=== PATIENT | male | born 1950 | race Hispanic/Latino ===

== ENCOUNTER → 2022-02-15 | Outpatient (CLI) | payer OTHER | END | disposition home or self-care (01) | LOC: SHCH 10:01 | PROVIDERS: ATTEND Student in an Organized Health Care Education/Training Program | DX: I08.8 Other rheumatic multiple valve diseases (principal); E78.5 Hyperlipidemia, unspecified | CPT/HCPCS: 93306 ==

== ENCOUNTER → 2022-04-29 | Outpatient (CLI) | payer OTHER ==
[2022-04-29 10:42] LABS: ALBUMIN 3.8 g/dL (3.5-5.0); POTASSIUM 5.2 mmol/L (3.5-5.1); TOTAL PROTEIN, SERUM 7.1 g/dL (6.0-8.3)
== END | disposition home or self-care (01) ==
LOC: LAB 09:02
PROVIDERS: ATTEND Student in an Organized Health Care Education/Training Program
DX: E78.5 Hyperlipidemia, unspecified (principal)
CPT/HCPCS: 36415; 80053

== ENCOUNTER → 2022-05-03 | Outpatient (CLI) | payer OTHER ==
[~2022-05-03] MED LIST: IOHEXOL 350 MG/ML 100ML INFUS..BTL IV ONE
== END | disposition home or self-care (01) ==
LOC: RAH 08:14
PROVIDERS: ATTEND Student in an Organized Health Care Education/Training Program
DX: I65.23 Occlusion and stenosis of bilateral carotid arteries (principal); I25.10 Atherosclerotic heart disease of native coronary artery without angina pectoris
CPT/HCPCS: 70498; Q9967

== ENCOUNTER → 2022-06-09 | Outpatient (CLI) | payer SELFPAY ==
[2022-06-09 13:17] LABS: ALBUMIN 4.1 g/dL (3.5-5.0); POTASSIUM 4.8 mmol/L (3.5-5.1); TOTAL PROTEIN, SERUM 7.2 g/dL (6.0-8.3)
== END | disposition home or self-care (01) ==
LOC: LAB 09:46
PROVIDERS: ATTEND Student in an Organized Health Care Education/Training Program
DX: I10 Essential (primary) hypertension (principal)
CPT/HCPCS: 36415; 80053

== ENCOUNTER 2023-02-21 11:18 | Emergency (ER) | payer OTHER ==
[~2023-02-21] VITALS: Ht 185.4 cm; Wt 86.2 kg
[2023-02-21 11:37] VITALS: BP 131/81; PULSE 56; RESP 16
[2023-02-21] MEDS ORDERED: 0.9%NACL 1000ML 1,000 ML IV ONE (12:30)
[2023-02-21 12:43] LABS: BASOPHILS # (AUTO) 0.03 K/uL (0.00-0.20); BASOPHILS % (AUTO) 0.4 % (0.0-5.0); EOSINOPHILS # (AUTO) 0.13 K/uL (0.00-0.70); EOSINOPHILS % (AUTO) 1.9 % (0.0-8.0); HEMATOCRIT 42.4 % (42-54); IMMATURE GRANULOCYTE ABSOLUTE 0.05 K/uL (0-1); LYMPHOCYTES # (AUTO) 1.6 K/uL (1.0-4.8); LYMPHOCYTES % (AUTO) 23.4 % (21.0-51.0); MEAN CORPUSCULAR HEMOGLOBIN 31.1 pg (27.0-33.0); MEAN CORPUSCULAR HGB CONC 34.7 g/dL (32.0-36.0); MEAN CORPUSCULAR VOLUME 89.8 fL (79-99); MONOCYTES # (AUTO) 0.4 K/uL (0.1-1.0); MONOCYTES % (AUTO) 5.3 % (3.0-13.0); NEUTROPHILS # (AUTO) 4.7 K/uL (1.8-7.7); NEUTROPHILS % (AUTO) 68.3 % (40.0-77.0); PLATELET COUNT (AUTO) 164 K/uL (130-400); RED BLOOD CELL COUNT(AUTO) 4.72 MIL/uL (4.50-6.20); WHITE BLOOD COUNT (AUTO) 6.8 K/uL (4.8-10.8)
[2023-02-21 12:51] LABS: BILIRUBIN,URINE NEGATIVE (NEGATIVE); COLOR,URINE YELLOW (YELLOW); GLUCOSE, URINE (UA) NEGATIVE (NEGATIVE); KETONES,URINE NEGATIVE (NEGATIVE); LEUKOCYTE ESTERASE ,URINE NEGATIVE Leu/uL (NEGATIVE); NITRATE,URINE NEGATIVE (NEGATIVE); OCCULT BLOOD,URINE NEGATIVE (NEGATIVE); PROTEIN,URINE NEGATIVE (NEGATIVE); UROBILINOGEN,URINE 0.2 mg/dL (0.2-1.0)
[2023-02-21 12:56] LABS: ADD UA MICROSCOPIC YES; APPEARANCE,URINE CLOUDY (CLEAR)
[2023-02-21 12:57] LABS: SARS-CoV-2, RNA, NAAT NEGATIVE SARS CoV-2 (NEGATIVE)
[2023-02-21 13:10] LABS: BACTERIA,URINE FEW /HPF (None Seen); RBC,URINE 0-1 /HPF (0-1); WBC,URINE 0-1 /HPF (0-1)
[2023-02-21 13:10] LABS: BILIRUBIN,TOTAL 0.4 mg/dL (0.2-1.0); CREATININE 0.9 mg/dL (0.5-1.5); POTASSIUM 4.3 mmol/L (3.5-5.1); TOTAL PROTEIN, SERUM 7.4 g/dL (6.0-8.3)
[2023-02-21 14:46] LABS: INFLUENZA TYPE A Negative For Type A (NEGATIVE); INFLUENZA TYPE B Negative For Type B (NEGATIVE)
[2023-02-21] MEDS ORDERED: MECL-226 PO (15:26)
== END 2023-02-21 16:37 | disposition home or self-care (01) ==
LOC: EDH 11:18
DX: R42 Dizziness and giddiness (principal); R51.9 Headache, unspecified; R53.83 Other fatigue; M19.90 Unspecified osteoarthritis, unspecified site; E78.00 Pure hypercholesterolemia, unspecified; Z20.822 Contact with and (suspected) exposure to COVID-19
CPT/HCPCS: 99285; 70450; 71045; 87635; 83735; 84484; 80053; 85025; 87804 ×2; 81001; 36415; 93005; C9803

== ENCOUNTER 2024-09-12 22:01 | Emergency (ER) | payer MEDICARE, OTHER ==
[~2024-09-12] VITALS: Ht 175.3 cm; Wt 86.2 kg
[2024-09-12 22:01] VITALS: BP 173/100; PULSE 73; RESP 20; TEMP 98.7
[~2024-09-12 22:01] MED LIST changes: -IOHEXOL 350 MG/ML 100ML INFUS..BTL IV ONE; +MECL-226 PO
--- NOTE | 2024-09-12 22:20 | ERN ---
ED Note History of Present Illness Stated Complaint: POST OP INCISION RE OPENING Chief Complaint: Post-Op Problem Time Seen by MD: 22:18 Time Seen by Midlevel: 22:20 Dictation: Mr. Pretty is a 73 year old gentleman with history of vertigo, BPH, osteoarthritis and hyperlipidemia edit to the emergency department this evening for wound check. Patient states he is status post bilateral blepharoplasty performed by Dr. Tito Martinez. He states he had the sutures removed two days ago and now he is concerned that incisions are opening up. He states he is using antibiotic ointment as instructed. He denies having any pain but states he has mild itching. He states that he has had some clear drainage. He had follow up appointment with specialist and was told everything was looking fine. He denies having any fever, eye discharge, eye pain or other concerns. Allergies: Coded Allergies: No Known Drug Allergies (Unverified Allergy, Unknown, 02/21/23) Home Meds Active Scripts Meclizine HCl (Meclizine HCl) 12.5 Mg Tablet, 12.5 MG PO TID, #20 TAB Prov:ALLI LAMB 02/21/23 Past Medical History Past Medical History: Arthritis, High Cholesterol Additional Past Medical Hx: VERTIGO Surgical History: Other Surgical History Other: PROSTATE SURGERY, RT SHOULDER, BILATERAL EYELID RN Note Reviewed/Agreed w/PFSH: Yes Review of System Dictation REVIEW OF SYSTEMS: CONSTITUTIONAL: Patient denies fevers, chills, sweats and weight changes. EYES: Patient denies any visual symptoms. EARS, NOSE, AND THROAT: No difficulties with hearing. No symptoms of rhinitis or sore throat. CARDIOVASCULAR: Patient denies chest pains, palpitations, orthopnea and paroxysmal nocturnal dyspnea. RESPIRATORY: No dyspnea on exertion, no wheezing or cough. GI: No nausea, vomiting, diarrhea, constipation, abdominal pain, hematochezia or melena. : No urinary hesitancy or dribbling. No nocturia or urinary frequency. No abnormal urethral discharge. MUSCULOSKELETAL: No myalgias or arthralgias. NEUROLOGIC: No chronic headaches, no seizures. Patient denies numbness, tingling or weakness. PSYCHIATRIC: Patient denies problems with mood disturbance. No problems with anxiety. ENDOCRINE: No excessive urination or excessive thirst. DERMATOLOGIC: Reports itching to bilateral eyelid incision sites. States he has had some clear discharge. States he feels that incisions are opening up. Initial Vital Sign VS Vital Signs Date Time Temp Pulse Resp B/P (MAP) Pulse Ox O2 Delivery O2 Flow Rate FiO2 09/12/24 22:01 98.8 73 20 173/100 97 Room Air Physical Exam Dictation Vital signs: Reviewed. Constitutional: No acute distress. Non-toxic appearing. Head/Face: Has mild swelling of bilateral lids. Incision is clean without drainage; not gaping. Nontender. lashes are normal. Conjunctival injection is absent. Sclera anicteric. Pupils equal, round, reactive to light. ENT: Pinnas intact and no signs of trauma or erythema. Ear canals clear and no discharge. TMs no erythema. No nasal discharge or bleeding noted. Oropharynx with no exudate, redness, swelling, masses, exudates, or evidence of obstruction. Uvula midline. Mucous membranes moist. Neck: Trachea midline, no masses palpated, and no cervical lymphadenopathy. No swelling. Supple, full range of motion. Chest/Axilla: No tenderness, no crepitus, no paradoxical movement, no retractions. Cardiovascular: Regular rate, regular rhythm, no murmur, no gallops. Symmetric pulses. No peripheral edema. Respiratory: Respirations even and unlabored. Lung sounds clear; no wheezes, rales or rhonchi. Gastrointestinal: Inspection is normal. No distention is appreciated. Bowel sounds are normal. No mass or organomegaly . There is no tenderness. No rebound. No rigidity. No voluntary or involuntary guarding. No Mckinnon's sign. Neurological: Normal speech, gross motor function intact, gross sensory function intact. No focal weakness/Paresthesia. Musculoskeletal/Extremities: All extremities have full range of motion, no pain or tenderness on palpation. Symmetric pulses. Integumentary: Intact. Skin is normal color, warm and dry. Cap refill less than 3 seconds. ED Course ED Course Vital Signs Date Time Temp Pulse Resp B/P (MAP) Pulse Ox O2 Delivery O2 Flow Rate FiO2 09/12/24 22:01 98.8 73 20 173/100 97 Room Air Patient is somewhat anxious. Concerned he may be experiencing infection of his incisions. He has already seen his specialists and told that everything was looking well. Lids have very minimal swelling and incision site looks good. Patient also assessed by ED attending. Reassurance provided. He will follow up with his surgeon and return to the emergency department for any worsening of symptoms or concerns. He did not wish to stay for further nursing assessment or formal discharge instructions/written Medical Decision Making MDM MDM: Differential diagnosis: Wound infection. Postop dehiscence Rationale: Tests considered and ordered secondary to shared decision making include: Previous outside records reviewed: Old ER visits. Risk of complication and/or morbidity or mortality of patient management: None Medications-Per medication reconciliation Need for hospitalization: Patient does not meet criteria for hospitalization. Need for emergency major/minor surgery: No There are no social concerns with this patient. Prescription drug management: Continue antibiotic ointment as prescribed by specialist Prescriptions will include symptomatic care Patient's prior external medical records from other ER visits were reviewed by me as indicated. Prior testing and results from previous visits were reviewed. Prior tests were taken into account with medical decision making and resource utilization, independent historian/historians were used to obtain complete medical history. I independently interpreted the test that were performed, results were reviewed by me and considered findings on radiology if ordered. Medical management and examination interpretation discussions were had by me with other qualified healthcare professionals as indicated for the patient's care. DX & DISP Disposition: Discharge Departure Impression: Primary Impression: Edema of eyelid of both eyes Additional Impression: Status post blepharoplasty of both eyes Condition: Stable Additional Instructions: Continue antibiotic ointment as directed by specialist. Follow up with surgeon. Monitor for signs of infection such as purulent drainage or fever. Return to the emergency department for any worsening of symptoms or concerns. Referrals: BERTRAM PARK MD (PCP) Time of Disposition: 22:49 RANDY URBINA NP Sep 12, 2024 22:20
--- NOTE | 2024-09-12 22:49 | NUR ---
PT CALLED FOR BEDDING. NOT IN LOBBY. NO ANSWER
== END 2024-09-12 22:52 | disposition left against medical advice (07) ==
LOC: EDH 22:01
DX: H02.843 Edema of right eye, unspecified eyelid (principal); H02.846 Edema of left eye, unspecified eyelid; M19.90 Unspecified osteoarthritis, unspecified site; E78.00 Pure hypercholesterolemia, unspecified; Z79.899 Other long term (current) drug therapy; Z98.890 Other specified postprocedural states
CPT/HCPCS: 99281